=== PATIENT | male | born 2005 | race Caucasian/White ===

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

== ENCOUNTER 2024-02-29 16:06 | Emergency (ER) | payer MEDICAID ==
[~2024-02-29] VITALS: Ht 185.4 cm; Wt 63.6 kg
[2024-02-29 16:12] VITALS: TEMP 98.2
[2024-02-29 16:30] VITALS: BP 125/65; PULSE 69; RESP 17; O2SAT 98
[2024-02-29] MEDS: BACITRACIN 0.9 GM PACKET OINTMENT TP ONE (17:15)
[2024-02-29] MEDS: PERTUSS(ACELL),DIPH,TET/PF 0.5 ML SYRINGE [ADULT] IM. ONE (17:15)
[2024-02-29] MEDS: IBUPROFEN 600 MG TABLET PO ONE (17:15)
[2024-02-29] MEDS ORDERED: ACET-2247 PO (17:29)
[2024-02-29] MEDS ORDERED: IBUP-1492 PO (17:29)
== END 2024-02-29 17:42 | disposition home or self-care (01) ==
LOC: EDUNIT# 16:06 → EMS 16:06
DX: S60.221A Contusion of right hand, initial encounter (principal); W22.01XA Walked into wall, initial encounter; Y93.89 Activity, other specified; Y92.89 Other specified places as the place of occurrence of the external cause; Y99.8 Other external cause status
CPT/HCPCS: 90471; 90715; 99284

== ENCOUNTER 2025-01-11 02:44 | Inpatient (IN) | payer MEDICAID ==
[~2025-01-11] VITALS: Ht 182.9 cm; Wt 59.6 kg
[~2025-01-11 02:44] MED LIST: ACET-2247 PO; IBUP-1492 PO
[2025-01-11 03:32] LABS: COVID AG,FIA SOURCE NASAL SWAB
[2025-01-11 03:55] LABS: SARS-COV2 (COVID) ANTIGEN,FIA Negative (Negative)
[2025-01-11] MEDS: LORazepam 2 MG/ML VIAL IM ONE (03:59)
[2025-01-11 05:02] LABS: PLATELET COUNT (AUTO) 270 K/uL (150-450); RED BLOOD CELL COUNT(AUTO) 4.67 MIL/uL (4.50-5.90); RED CELL DISTRIBUTION WIDTH 16.5 % (11.5-14.5); WHITE BLOOD COUNT (AUTO) 8.3 K/uL (4.5-11.0)
[2025-01-11 05:07] LABS: CALCIUM, TOTAL 8.1 mg/dL (8.8-10.5); CREATININE 0.82 mg/dL (0.60-1.30); GLOMERULAR FILTR. RATE CALC > 60 mL/min (>60); GLUCOSE,RANDOM 92 mg/dL (70-110); SODIUM SERUM 139 mmol/L (136-145); UREA NITROGEN, BLOOD 6 mg/dL (7-18)
[2025-01-11 05:18] LABS: RBC MORPHOLOGY COMMENT ABNORMAL RBC MORPH
[2025-01-11] MEDS: POTASSIUM CHLORIDE 20 MEQ ER TABLET PO ONE (05:59)
[2025-01-11] MEDS: POTASSIUM CHLORIDE 10% 40 MEQ/30 ML LIQUID UDCUP PO ONE (10:11)
[2025-01-11 14:16] VITALS: BP 128/77; PULSE 88; RESP 14; TEMP 98.4; O2SAT 97
[2025-01-11] MEDS ORDERED: DOCUSATE SODIUM 100 MG CAPSULE PO PRN (20:00)
[2025-01-11] MEDS ORDERED: LOPERAMIDE HCL 2 MG CAPSULE PO PRN (20:00)
[2025-01-11] MEDS ORDERED: ONDANSETRON 4 MG TABLET PO PRN (20:00)
[2025-01-11] MEDS ORDERED: GuaiFENesin/D-METHORPHAN [SUGAR-FREE] 200-20MG/10 ML SYRUP UDCUP PO PRN (20:00)
[2025-01-11] MEDS ORDERED: PETROLATUM,WHITE 28 GM JELLY TP PRN (20:00)
[2025-01-11] MEDS ORDERED: ALBUTEROL SULFATE HFA 90 MCG/PUFF 8 GM INHALER IH PRN (20:00)
[2025-01-11] MEDS ORDERED: IBUPROFEN 400 MG TABLET PO PRN (20:00)
[2025-01-11] MEDS ORDERED: MAGNESIUM HYDROXIDE SUSPENSION 30 ML UDCUP PO PRN (20:00)
[2025-01-11] MEDS ORDERED: ACETAMINOPHEN 325 MG TABLET PO PRN (20:00)
[2025-01-11 20:20] VITALS: BP 121/70; PULSE 100; RESP 16; TEMP 98.5; O2SAT 100
[2025-01-12 08:55] LABS: PLATELET COUNT (AUTO) 300 K/uL (150-450); RED BLOOD CELL COUNT(AUTO) 5.58 MIL/uL (4.50-5.90); RED CELL DISTRIBUTION WIDTH 16.5 % (11.5-14.5); WHITE BLOOD COUNT (AUTO) 6.1 K/uL (4.5-11.0)
[2025-01-12 08:58] VITALS: BP 117/71; PULSE 110; RESP 18; TEMP 98.2; O2SAT 99
[2025-01-12 09:04] LABS: RBC MORPHOLOGY COMMENT ABNORMAL RBC MORPH
[2025-01-12 09:36] LABS: ASPARTATE AMINOTRANSFERASE 39 U/L (15-37); CALCIUM, TOTAL 9.2 mg/dL (8.8-10.5); CHOL/HDL RATIO 2.0 (4.2-7.3); CREATININE 0.92 mg/dL (0.60-1.30); GLOMERULAR FILTR. RATE CALC > 60 mL/min (>60); GLUCOSE,RANDOM 79 mg/dL (70-110); LDL CHOL (CALC.) 55 mg/dL (0-130); SODIUM SERUM 138 mmol/L (136-145); TOTAL PROTEIN, SERUM 8.1 g/dL (6.4-8.2); UREA NITROGEN, BLOOD 13 mg/dL (7-18)
[2025-01-12 10:03] VITALS: BP 117/71; PULSE 110; RESP 17; TEMP 98.2; O2SAT 99
[2025-01-12 10:50] VITALS: PULSE 85; O2SAT 99
[2025-01-12 20:37] VITALS: BP 122/81; PULSE 82; RESP 18; TEMP 98.5; O2SAT 99
[2025-01-12] MEDS: ZOLPIDEM TARTRATE 10 MG TABLET PO PRN (21:31)
[2025-01-13 08:33] VITALS: BP 115/66; RESP 16; TEMP 98; O2SAT 97
[2025-01-13] MEDS: NICOTINE 14 MG/24 HOUR PATCH TD PRN (11:13)
[2025-01-13] MEDS: NICOTINE 21 MG/24 HOUR PATCH TD SCH (12:58)
[2025-01-13] MEDS: MAG HYDROX/ALUMINUM HYD/SIMETH ES 30 ML SUSPENSION UDCUP PO PRN (17:09)
[2025-01-13 20:47] VITALS: BP 118/67; PULSE 89; RESP 17; TEMP 97.8; O2SAT 99
[2025-01-14 08:13] VITALS: BP 109/82; RESP 16; TEMP 99.1; O2SAT 96
== END 2025-01-14 14:20 | disposition home or self-care (01) | DRG 750 ==
LOC: EMS 02:45 → B3A 12:02
PROVIDERS: ADMIT Psychiatry & Neurology Psychiatry; ATTEND Psychiatry & Neurology Psychiatry
PROC: GZHZZZZ Group Psychotherapy (ICD-10-PCS; principal; 2025-01-12)
PROC: GZ52ZZZ Individual Psychotherapy, Cognitive (ICD-10-PCS; 2025-01-13)
DX: F29 Unspecified psychosis not due to a substance or known physiological condition (principal); F23 Brief psychotic disorder; R45.851 Suicidal ideations; F10.129 Alcohol abuse with intoxication, unspecified; D64.9 Anemia, unspecified; E87.6 Hypokalemia; Y90.5 Blood alcohol level of 100-119 mg/100 ml; R73.03 Prediabetes; Z20.822 Contact with and (suspected) exposure to COVID-19; Z79.899 Other long term (current) drug therapy
CPT/HCPCS: 80048; 80053; 80061; 83036; 84132; 84436; 84443; 85025; G0480